=== PATIENT | female | born 1960 | race Caucasian/White ===

== ENCOUNTER 2022-07-19 14:15 | Outpatient (RCR) | payer MEDICARE, BC, SELFPAY | END 2022-11-16 23:59 | disposition home or self-care (01) | PROVIDERS: PCP Family Medicine; Visit Provider Family Medicine | DX: M54.50 Low back pain, unspecified (principal); Z51.89 Encounter for other specified aftercare | CPT/HCPCS: 97110; 97140; 97163 ==

== ENCOUNTER 2023-01-13 14:45 | Outpatient (RCR) | payer MEDICARE, BC, SELFPAY | END 2023-04-19 10:54 | disposition home or self-care (01) | PROVIDERS: PCP Family Medicine; Visit Provider Family Medicine | DX: M54.12 Radiculopathy, cervical region (principal); Z51.89 Encounter for other specified aftercare | CPT/HCPCS: 97110; 97140; 97162 ==